=== PATIENT | female | born 1955 | race Two or more races ===

== ENCOUNTER 2024-06-30 11:55 | Inpatient (IN) | payer OTHER ==
[~2024-06-30] VITALS: Ht 162.6 cm; Wt 73.3 kg
[2024-06-30 12:12] VITALS: BP 155/57; PULSE 74; RESP 16; O2SAT 99
[2024-06-30 13:31] LABS: Basophils # (auto) 0.1 10 ^3/uL (0-0.2); Basophils % (auto) 0.7 % (0.0-2.0); Eosinophils # (auto) 0.1 10 ^3/uL (0-0.8); Eosinophils % (auto) 0.9 % (0.0-7.0); Hematocrit 41.9 % (36.0-46.0); Hemoglobin 14.2 g/dL (12.2-16.2); Lymphocytes # (auto) 2.1 10 ^3/uL (0.4-5.4); Lymphocytes % (auto) 23.1 % (10.0-50.0); Mean Corpuscular Hemoglobin 31.1 pg (28.0-32.0); Mean Corpuscular Hgb Conc. 33.8 g/dL (32.0-36.0); Monocytes # (auto) 0.5 10 ^3/uL (0-1.3); Monocytes % (auto) 5.4 % (0.0-12.0); Neutrophils # (auto) 6.5 10 ^3/uL (1.6-8.6); Neutrophils % (auto) 69.9 % (37.0-80.0); Nucleated Red Blood Cells % 0.1 %; Platelet Count (auto) 243 10^3/uL (140-450); Red Blood Cells 4.56 10^6/uL (4.0-5.20); Red Cell Distribution Width 13.8 % (11.8-14.3); White Blood Cell 9.3 10^3/uL (4.4-10.8)
--- NOTE | 2024-06-30 13:45 | DVH ---
EXAM: CT HEAD WITHOUT CONTRAST HISTORY: aloc COMPARISON: None TECHNIQUE: Axial images of the head were obtained and reformatted in coronal and sagittal planes. All CT scans at this medical facility are performed using dose modulation techniques as appropriate t o a performed exam including the following: Automated exposure control was utilized; adjustment of th e MA and/or KV according to patient size; and use of iterative reconstruction technique. CT Dose: CTDI volume is 57.24 mGy. Dose-length product is 1128.08 mGy*cm FINDINGS: There is no evidence of acute intracranial hemorrhage, mass, mass effect midline shift. There is no h ydrocephalus or extra-axial fluid collection. Morales-white matter differentiation is maintained. The visualized paranasal sinuses and mastoid air cells are clear. The calvarium is intact. IMPRESSION: 1. No acute intracranial process. HS:Y
--- NOTE | 2024-06-30 13:46 | DVH ---
Chest x-ray Technique: AP portal HISTORY: confusion Comparison: None FINDINGS: Heart size normal. Aorta slightly tortuous. No infiltrates or effusions IMPRESSION: 1. No acute cardiopulmonary pathology
[2024-06-30 13:49] LABS: Alanine Aminotransferase 21 U/L (7-40); Albumin 4.5 g/dL (3.2-4.8); Alkaline Phosphatase 104 U/L (46-116); Anion Gap 6 (5-15); Aspartate Aminotransferase 13 U/L (13-40); BUN/Creatinine Ratio 14.3 (10.0-20.0); Blood Alcohol 3.3 mg/dL (<10); Blood Urea Nitrogen 11 mg/dL (9-23); Calcium 9.8 mg/dL (8.7-10.4); Carbon Dioxide 26 mmol/L (20-31); Chloride 100 mmol/L (98-107); Glucose 128 mg/dL (74-106); Potassium 4.3 mmol/L (3.5-5.1); Sodium 132 mmol/L (136-145); Total Protein 6.8 g/dL (5.7-8.2)
[2024-06-30 13:51] LABS: Urine Bacteria None Seen /hpf (None Seen)
--- NOTE | 2024-06-30 13:51 | ED.PDOC ---
Altered Mental Status HPI Comments 68 year old female presents to the ED with chief complaint memory loss. Patient's daughter reports that the patient was alone yesterday. Family has noticed patient has both short and long-term memory loss all day today and she asks every 30 minutes why she is here at the hospital. Daughter relays that this is not normal for her, being normally alert, oriented x4, and very physically active at home. Patient states she has been experiencing a cough and itchy throat as well. Patient denies any headache, dizziness, N/V/D, dysuria, or frequency. 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 History Family History Family History: Reviewed,noncontributory to illness Social History Smoker: Cigarettes Alcohol: Denies ETOH Use Drugs: Denies Drug Use Lives In: Home Constitutional: denies: chills, diaphoresis, fatigue, fever, malaise, sweats, weakness, others EENTM: reports: throat pain; denies: blurred vision, double vision, ear blee ding, ear discharge, ear drainage, ear pain, ear ringing, eye pain, eye redness, hearing loss, mouth pain, mouth swelling, nasal discharge, nose bleeding, nose congestion, nose pain, photophobia, tearing, throat swelling, voice changes, others Respiratory: reports: cough; denies: hemoptysis, orthopnea, SOB at rest, shortness of breath, SOB with excertion, stridor, wheezing, others Cardiovascular: denies: chest pain, dizzy spells, diaphoresis, Dyspnea on exertion, edema, irregular heart beat, left arm pain, lightheadedness, palpitations, PND, syncope, others Gastrointestinal: denies: abdomen distended, abdominal pain, blood streaked bowels, constipated, diarrhea, dysphagia, difficulty swallowing, hematemesis, melena, nausea, poor appetite, poor fluid intake, rectal bleeding, rectal pain, vomiting, others Genitourinary: denies: abnormal vagina bleeding, burning, dyspareunia, dysuria, flank pain, frequency, hematuria, incontinence, pain, , vagina discharge, urgency, others Neurological: reports: others (Memory loss); denies: dizziness, fainting, headache, left sided numbness, left sided weakness, numbness, paresthesia, pre- existing deficit, right sided numbness, right sided weakness, seizure, speech problems, tingling, tremors, weakness Musculoskeletal: denies: back pain, gout, joint pain, joint swelling, muscle pain, muscle stiffness, neck pain, others Integumetry: denies: bruises, change in color, change in hair/nails, dryness, laceration, lesions, lumps, rash, wounds, others Allergic/Immunocompromised: denies: Difficulty Healing, Frequent Infections, Hives, Itching, others Hematologic/Lymphatic: denies: anemia, blood clots, easy bleeding, easy bruising, swollen glands, others Endocrine: denies: excessive hunger, excessive sweating, excessive thirst, excessive urination, flushing, intolerance to cold, intolerance to heat, unexplained weight gain, unexplained weight loss, others Psychiatric: denies: anxiety, bipolar disorder, depression, hopeless, panic disorder, schizophrenia, sleepless, suicidal, others All Other Systems: Reviewed and Negative Physical Exam General Appearance: No Apparent Distress HEENT: Normal ENT Inspection Neck: Full Range of Motion, Normal Inspection Respiratory: Lungs Clear, No Accessory Muscle Use, No Respiratory Distress, Normal Breath Sounds, Other (Productive sounding cough) Cardiovascular: No Edema, No JVD, Regular Rate/Rhythm Breast Exam: Deferred Gastrointestinal: Non Tender, Soft Genitalia: Deferred Pelvic: Deferred Rectal: Deferred Extremities: Normal inspection, Normal range of motion, Non-tender, No pedal edema Musculoskeletal : Apperance: Normal Neurologic: Alert (Oriented x2), Normal Affect, Normal Mood, Other (Ambulatory without difficulty. No gross focal deficit. Demonstrates short and long-term memory loss. Repetitive questioning.) Cerebellar Function: NOT DONE Reflexes: NOT DONE Skin: Dry, Normal Color, Warm Lymphatic: NOT DONE Was a procedure done? Was a procedure done?: No Differential Diagnosis (ALOC) Differential Diagnosis: Hypoglycemia, Encephalopathy, Seizure, Closed Head Injury, CVA, Mass Lesion, SAH, Drug Overdose, ETOH Intoxication X-Ray, Labs, Meds, VS Vital Signs Date Time Temp Pulse Resp B/P (MAP) Pulse Ox O2 Delivery O2 Flow Rate FiO2 06/30/24 12:12 98.6 74 16 155/57 (89) 99 Lab Test 06/30/24 13:20 06/30/24 13:05 06/30/24 12:12 Range/Units White Blood Count 9.3 4.4-10.8 10^3/uL Red Blood Count 4.56 4.0-5.20 10^6/uL Hemoglobin 14.2 12.2-16.2 g/dL Hematocrit 41.9 36.0-46.0 % Mean Corpuscular Volume 92.0 80.0-100.0 fL Mean Corpuscular Hemoglobin 31.1 28.0-32.0 pg Mean Corpuscular Hemoglobin Concent 33.8 32.0-36.0 g/dL Red Cell Distribution Width 13.8 11.8-14.3 % Platelet Count 243 140-450 10^3/uL Mean Platelet Volume 7.9 6.9-10.8 fL Neutrophils (%) (Auto) 69.9 37.0-80.0 % Lymphocytes (%) (Auto) 23.1 10.0-50.0 % Monocytes (%) (Auto) 5.4 0.0-12.0 % Eosinophils (%) (Auto) 0.9 0.0-7.0 % Basophils (%) (Auto) 0.7 0.0-2.0 % Neutrophils # (Auto) 6.5 1.6-8.6 10 ^3/uL Lymphocytes # (Auto) 2.1 0.4-5.4 10 ^3/uL Monocytes # (Auto) 0.5 0-1.3 10 ^3/uL Eosinophils # (Auto) 0.1 0-0.8 10 ^3/uL Basophils # (Auto) 0.1 0-0.2 10 ^3/uL Nucleated Red Blood Cells 0.1 % Sodium Level 132 L 136-145 mmol/L Potassium Level 4.3 3.5-5.1 mmol/L Chloride Level 100 98-107 mmol/L Carbon Dioxide Level 26 20-31 mmol/L Anion Gap 6 5-15 Blood Urea Nitrogen 11 9-23 mg/dL Creatinine 0.77 0.550-1.02 mg/dL Glomerular Filtration Rate Calc 85 >90 mL/min BUN/Creatinine Ratio 14.3 10.0-20.0 Serum Glucose 128 H 74-106 mg/dL Lactic Acid Level 1.0 0.4-2.0 mmol/L Calcium Level 9.8 8.7-10.4 mg/dL Total Bilirubin 1.0 0.2-1.0 mg/dL Aspartate Amino Transferase (AST) 13 13-40 U/L Alanine Aminotransferase (ALT) 21 7-40 U/L Alkaline Phosphatase 104 46-116 U/L Ammonia < 10 L 11-32 umol/L Troponin I High Sensitivity 5 </=34 ng/L Total Protein 6.8 5.7-8.2 g/dL Albumin 4.5 3.2-4.8 g/dL Plasma/Serum Blood Alcohol 3.3 <10 mg/dL Urine Color Light-yellow Yellow Urine Clarity Clear Clear Urine pH 6.0 5.0-9.0 Urine Specific [place] 1.009 1.001-1.035 Urine Protein Negative Negative Urine Ketones 1+ H Negative Urine Blood Negative Negative /uL Urine Nitrite Negative Negative Urine Bilirubin Negative Negative Urine Urobilinogen Normal Negative mg/dL Urine Leukocyte Esterase Negative Negative /uL Urine RBC 1 0 - 4 /hpf Urine WBC <1 0 - 5 /hpf Urine Squamous Epithelial Cells Few <5 /hpf Urine Bacteria None seen None Seen /hpf Urine Glucose Normal Normal mg/dL Urine Opiates Screen Neg NEGATIVE Urine Fentanyl Screen Neg NEGATIVE Urine Barbiturates Screen Neg NEGATIVE Urine Phencyclidine Screen Neg NEGATIVE Urine Amphetamines Screen Neg NEGATIVE Urine Benzodiazepines Screen Neg NEGATIVE Urine Cocaine Screen Neg NEGATIVE Urine Cannabinoids Screen Neg NEGATIVE POC Glucose 113 H 70-106 mg/dl CT Head: FINDINGS: There is no evidence of acute intracranial hemorrhage, mass, mass effect midline shift. There is no hydrocephalus or extra-axial fluid collection. Morales-white matter differentiation is maintained. The visualized paranasal sinuses and mastoid air cells are clear. The calvarium is intact. IMPRESSION: 1. No acute intracranial process. Chest XR: FINDINGS: Heart size normal. Aorta slightly tortuous. No infiltrates or effusions IMPRESSION: 1. No acute cardiopulmonary pathology X-Ray, Labs, Meds, VS Comment 68-year-old female with no known past medical history although patient does not regularly see a doctor, brought in by family for evaluation of short and long- term memory loss and repetitive questioning noted since this morning. Vitals remarkable for BP 155/57 Exam remarkable for confusion, short and long-term memory loss and repetitive questioning Rhythm strip independently interpreted by me: Sinus rhythm, rate 74, no ectopy. CT head unremarkable chest x-ray unremarkable CBC, CMP, ammonia level, lactate, UA, troponin, alcohol and drug screens all unremarkable for any abnormality of acute significance Patient treated with the following in the ED: Aspirin 325 mg p.o. On re-evaluation there was no new neurologic change. Vitals were stable. Plan is to admit the patient for brain MRI and Neurology evaluation to rule out CVA. Images Reviewed?: Images reviewed and evaluated by me Time of 1ST Reevaluation: 14:44 Reevaluation 1ST: Unchanged Patient Education/Counseling: Diagnosis, Treatment Family Education/Counseling: Diagnosis, Treatment Departure 1 Departure Time of Disposition: 15:47 Impression: Primary Impression: Acute encephalopathy Disposition: ADMITTED INPATIENT Admit to: [facility] Condition: Guarded Critical Care Note Critical Care Time?: No Stability Stability form required: No Heart Score Heart Score: Heart Score Response (Comments) Value History N/A 0 EKG N/A 0 Age N/A 0 Risk Factors N/A 0 Troponin N/A 0 Total 0 I personally scribed for JAN AZAR MD ([email or web address]) on 06/30/24 at 13:51. Electronically submitted by Tonny Begum ([email or web address]). I personally scribed for JAN AZAR MD ([email or web address]) on 06/30/24 at 14:30. Electronically submitted by Tonny Begum ([email or web address]). JAN AZAR MD Jun 30, 2024 13:51
[2024-06-30 14:12] LABS: Urine Blood Negative /uL (Negative); Urine Clarity Clear (Clear); Urine Color Light-Yellow (Yellow); Urine Protein, UAD Negative (Negative); Urine Specific Gravity 1.009 (1.001-1.035); Urine Urobilinogen Normal (Negative); Urine WBC <1 /hpf (0 - 5)
[2024-06-30 14:28] LABS: Amphetamine Screen, Urine Neg (NEGATIVE); Barbiturate Scree,Urine Neg (NEGATIVE); Benzodiazephine Screen, Urine Neg (NEGATIVE)
[2024-06-30 14:29] LABS: Cocaine Screen, Urine Neg (NEGATIVE); Opiate Scree,Urine Neg (NEGATIVE); Phencyclidine Screen, Urine Neg (NEGATIVE)
[2024-06-30 14:30] LABS: Cannabinoid Screen, Urine Neg (NEGATIVE)
[2024-06-30] MEDS ORDERED: ASPirin 325 MG TAB PO ONE (16:00)
[2024-06-30] MEDS ORDERED: DOCUSATE SOD 100 MG CAP PO PRN (16:45)
[2024-06-30] MEDS ORDERED: MORPHINE SULFATE INJ 2 MG/ml SYRG IV PRN (16:45)
[2024-06-30] MEDS ORDERED: HYDROcodone-ACET 5/325MG TAB PO PRN (16:45)
[2024-06-30] MEDS ORDERED: ONDANSETRON HCL 4 MG/2 ML VIAL IV PRN (16:45)
[2024-06-30] MEDS ORDERED: DEXTROSE (50%) 50ML SYRG IV PRN (16:45)
[2024-06-30] MEDS ORDERED: SODIUM CHLORIDE 0.9% 1,000 ML IV SCH (16:45)
[2024-06-30] MEDS ORDERED: ACETAMINOPHEN 325 MG TAB PO PRN (16:45)
[2024-06-30] MEDS ORDERED: LORazepam 0.5 MG TAB PO PRN (16:45)
[2024-06-30] MEDS ORDERED: TEMAZEPAM 15 MG CAP PO PRN (16:45)
[2024-06-30] MEDS ORDERED: MAALOX PLUS or MAALOX 30 ML PO PRN (16:45)
--- NOTE | 2024-06-30 17:13 | DVHHP2 ---
History of Present Illness Reason for Visit: Changes in memory History of Present Illness 68-year-old obese patient stated no past medical history patient was brought in by family for complaints of possible memory loss patient does not appear in any acute distress only other complaints were cough sore throat patient has no stat ed other medical problems but states that both long-term and short-term memory seem to be fading with no acute associated cause patient is a known smoker also obese no other underlying conditions as per family patient was evaluated in the ED and recommended for admission further evaluation and neurological evaluation Review of Systems Constitutional: No: Fever, Chills, Sweats, Weakness, Malaise, Other Eyes: No: Pain, Vision change, Conjunctivae inflammation, Eyelid inflammation, Other, Redness ENT: No: Ear pain, Ear discharge, Nose pain, Nose discharge, Nose congestion, Mouth pain, Mouth swelling, Throat pain, Throat swelling, Other Respiratory: No: Cough, Dry, Shortness of breath, SOB with excertion, Wheezing, Hemoptysis, Pleuritic Pain, Sputum, Wheezing, Other Cardiovascular: No: Chest Pain, Palpitations, Orthopnea, Paroxysmal Noc. Dyspnea, Edema, Lt Headedness, Other Gastrointestinal: No: Nausea, Vomiting, Abdominal Pain, Diarrhea, Constipation, Melena, Hematochezia, Other Genitourinary: No Dysuria, No Frequency, No Incontinence, No Hematuria, No Retention, No Other Musculoskeletal: No: other, neck pain, shoulder pain, arm pain, back pain, hand pain, leg pain, foot pain Skin: No: Rash, Lesions, Jaundice, Bruising, Other Neurological: Incoordination, Confusion; No: Weakness, Numbness, Change in speech, Seizures, Other Allergies: Coded Allergies: NO KNOWN ALLERGIES (Unverified , 06/30/24) Exam Vital Signs Vital Signs Date Time Temp Pulse Resp B/P (MAP) Pulse Ox O2 Delivery O2 Flow Rate FiO2 06/30/24 12:12 98.6 74 16 155/57 (89) 99 General Appearance: Alert, Oriented X3, Cooperative HEENT: Atraumatic, PERRLA Respiratory: Clear to auscultation, Normal air movement Cardiovascular: Regular rate, Normal S1 Abdominal: Normal bowel sounds, Soft, No tenderness Extremities: No clubbing, No cyanosis, No edema Skin: No rashes, No breakdown Neuro: Normal gait, Normal speech Psych/Mental Status: Mood NL Labs/Xrays Labs Test 06/30/24 13:20 06/30/24 13:05 06/30/24 12:12 Range/Units White Blood Count 9.3 4.4-10.8 10^3/uL Red Blood Count 4.56 4.0-5.20 10^6/uL Hemoglobin 14.2 12.2-16.2 g/dL Hematocrit 41.9 36.0-46.0 % Mean Corpuscular Volume 92.0 80.0-100.0 fL Mean Corpuscular Hemoglobin 31.1 28.0-32.0 pg Mean Corpuscular Hemoglobin Concent 33.8 32.0-36.0 g/dL Red Cell Distribution Width 13.8 11.8-14.3 % Platelet Count 243 140-450 10^3/uL Mean Platelet Volume 7.9 6.9-10.8 fL Neutrophils (%) (Auto) 69.9 37.0-80.0 % Lymphocytes (%) (Auto) 23.1 10.0-50.0 % Monocytes (%) (Auto) 5.4 0.0-12.0 % Eosinophils (%) (Auto) 0.9 0.0-7.0 % Basophils (%) (Auto) 0.7 0.0-2.0 % Neutrophils # (Auto) 6.5 1.6-8.6 10 ^3/uL Lymphocytes # (Auto) 2.1 0.4-5.4 10 ^3/uL Monocytes # (Auto) 0.5 0-1.3 10 ^3/uL Eosinophils # (Auto) 0.1 0-0.8 10 ^3/uL Basophils # (Auto) 0.1 0-0.2 10 ^3/uL Nucleated Red Blood Cells 0.1 % Sodium Level 132 L 136-145 mmol/L Potassium Level 4.3 3.5-5.1 mmol/L Chloride Level 100 98-107 mmol/L Carbon Dioxide Level 26 20-31 mmol/L Anion Gap 6 5-15 Blood Urea Nitrogen 11 9-23 mg/dL Creatinine 0.77 0.550-1.02 mg/dL Glomerular Filtration Rate Calc 85 >90 mL/min BUN/Creatinine Ratio 14.3 10.0-20.0 Serum Glucose 128 H 74-106 mg/dL Lactic Acid Level 1.0 0.4-2.0 mmol/L Calcium Level 9.8 8.7-10.4 mg/dL Total Bilirubin 1.0 0.2-1.0 mg/dL Aspartate Amino Transferase (AST) 13 13-40 U/L Alanine Aminotransferase (ALT) 21 7-40 U/L Alkaline Phosphatase 104 46-116 U/L Ammonia < 10 L 11-32 umol/L Troponin I High Sensitivity 5 </=34 ng/L Total Protein 6.8 5.7-8.2 g/dL Albumin 4.5 3.2-4.8 g/dL Plasma/Serum Blood Alcohol 3.3 <10 mg/dL Urine Color Light-yellow Yellow Urine Clarity Clear Clear Urine pH 6.0 5.0-9.0 Urine Specific [place] 1.009 1.001-1.035 Urine Protein Negative Negative Urine Ketones 1+ H Negative Urine Blood Negative Negative /uL Urine Nitrite Negative Negative Urine Bilirubin Negative Negative Urine Urobilinogen Normal Negative mg/dL Urine Leukocyte Esterase Negative Negative /uL Urine RBC 1 0 - 4 /hpf Urine WBC <1 0 - 5 /hpf Urine Squamous Epithelial Cells Few <5 /hpf Urine Bacteria None seen None Seen /hpf Urine Glucose Normal Normal mg/dL Urine Opiates Screen Neg NEGATIVE Urine Fentanyl Screen Neg NEGATIVE Urine Barbiturates Screen Neg NEGATIVE Urine Phencyclidine Screen Neg NEGATIVE Urine Amphetamines Screen Neg NEGATIVE Urine Benzodiazepines Screen Neg NEGATIVE Urine Cocaine Screen Neg NEGATIVE Urine Cannabinoids Screen Neg NEGATIVE POC Glucose 113 H 70-106 mg/dl Assessment/Plan Assessment[facility] Suspected encephalopathy versus changes of dementia early stages Change in memory Patient was stated changes in memory and cognition CT head of the completely negative No acute signs of stroke No acute signs of infection noted Recommended admission for neurological evaluation Possible inpatient MRI Plan discussed with: Patient My Orders Orders - DEBBY BAEZ MD Procedure Category Date Status Time * Neurology Consult CONS 06/30/24 Transmitted 16:39 Glucose Blood PHA 06/30/24 In Process (Accu-Chek Comfort 20:00 Insulin R (Human) PHA 06/30/24 In Process (Insulin R) 20:00 Dextrose 50% Syringe PHA 06/30/24 In Process 16:45 Admit ADMIT 06/30/24 Transmitted 16:39 Code Status CODE 06/30/24 Transmitted 16:39 Vital Signs JODY 06/30/24 In Process 16:39 Review Orders With JODY 06/30/24 In Process Adm. 16:39 Consistent DIET 06/30/24 Transmitted Carb(Ccho)Diabetes Dinner Sodium Chloride 0.9% PHA 06/30/24 In Process 16:45 Lorazepam Tablet PHA 06/30/24 In Process (Ativan Tablet) 16:45 Alum & Mag PHA 06/30/24 In Process Hydrox-Simethicone 16:45 Docusate Sodium PHA 06/30/24 In Process Capsule (Colace 16:45 Acetaminophen Tablet PHA 06/30/24 In Process (Tylenol Tablet) 16:45 Temazepam (Restoril) PHA 06/30/24 In Process 16:45 Notify Md Of Changes [facility] 06/30/24 In Process From Base 16:39 Advance Directive [facility] 06/30/24 In Process 16:39 Basic Metabolic Panel LAB 07/01/24 Verified 04:00 Urinalysis LAB 06/30/24 Logged 16:39 Complete Blood Count LAB 07/01/24 Verified 04:00 Patient Condition ORDERS 06/30/24 Transmitted 16:39 Allergies JODY 06/30/24 In Process 16:39 Hydrocodone-Acet PHA 06/30/24 In Process 5/325mg Tab ([place] 16:45 Ondansetron Hcl PHA 06/30/24 In Process (Zofran) 16:45 Morphine Sulfate PHA 06/30/24 In Process Injection 16:45 Notify Md Of Changes [facility] 06/30/24 In Process From Base 16:39 Oxygen By Nasal RT 06/30/24 Transmitted Cannula 16:39 Problem List: (1) Acute encephalopathy Date of Service: Jun 30, 2024 Billing Provider: DEBBY BAEZ MD Common Visit Codes: 51401-[id number] INP/OBS CARE (HIGH) DEBBY BAEZ MD Jun 30, 2024 17:13
[2024-06-30] MEDS ORDERED: InsuLIN REG 1unit/0.01ml Soln (100units/ml) SC SCH (20:00)
[2024-06-30] MEDS ORDERED: ACCU-CHEK COMFORT CURVE STRIP VI SCH (20:00)
== END 2024-06-30 21:35 | disposition left against medical advice (07) | DRG 72 ==
LOC: ER 11:55 → OVERFLOW 16:39
PROVIDERS: ADMIT Hospitalist; ATTEND Hospitalist
DX: G93.41 Metabolic encephalopathy (principal); F17.210 Nicotine dependence, cigarettes, uncomplicated; E66.9 Obesity, unspecified; F03.90 Unspecified dementia, unspecified severity, without behavioral disturbance, psychotic disturbance, mood disturbance, and anxiety; Z79.899 Other long term (current) drug therapy; Z68.27 Body mass index [BMI] 27.0-27.9, adult
CPT/HCPCS: 36415; 70450; 71045; 80053; 80307; 80320; 81001; 82140; 82962; 83605; 84484; 85025; 87086; 87088; 87186; G0378